=== PATIENT | male | born 1955 | race Hispanic/Latino ===

== ENCOUNTER → 2022-01-07 | Day surgery (SDC) | payer MEDICARE, BC ==
[2022-01-02 16:18] LABS: HEMATOCRIT 46.5 % (38.2-49.6); HEMOGLOBIN 15.3 g/dL (14.0-18.0); LYMPHOCYTES # (AUTO) 0.5 (1.0-3.2); MEAN CORPUSCULAR HGB CONC 32.9 g/dL (31-35); MEAN CORPUSCULAR VOLUME 85.2 fL (81-99); MONOCYTES # (AUTO) 0.6 (0.2-0.8); MONOCYTES % 11.3 % (4.4-11.3); NEUTROPHILS # (AUTO) 4.1 (2.1-6.9); NEUTROPHILS % 79.5 % (38.7-80.0); PLATELET COUNT 161 x10e3/uL (140-360); RED BLOOD COUNT 5.46 x10e6/uL (4.3-5.7); RED CELL DISTRIBUTION WIDTH 12.5 % (11.7-14.4)
[~2022-01-07] MED LIST: ACIDOPHILUS1 EAC1 PO; ASTAXANTHIN4 MG; B-121000 MC2; BIOTIN2500 MCG PO; FENTANYL CITRATE/PF 100MCG/2 ML INJ ONE; FISH OIL 1,4001 EACH; HYOSCYAMINE SULFATE 0.5 MG/ML INJ ONE; METOCLOPRAMIDE HCL 10 MG/2ML VIAL ONE; MIDAZOLAM HCL 2 MG/2 ML VIAL ONE; ONE DAILY FOR1 EAC1; PROPOFOL IV EMULSION 10 MG/ML 20 ML VIAL ONE; PROPOFOL IV EMULSION 10 MG/ML 50 ML VIAL IV ONE; TRIPLE HELIX CO10 GM; UBIQUINOL100 MG; [UNRECOGNIZED DRUG - OTHER]
[2022-01-07 10:35] VITALS: BP 122/82
== END | disposition home or self-care (01) ==
LOC: OR 07:14
PROVIDERS: ATTEND Internal Medicine Gastroenterology
DX: K29.50 Unspecified chronic gastritis without bleeding (principal); D12.4 Benign neoplasm of descending colon; K62.1 Rectal polyp; I85.00 Esophageal varices without bleeding; K20.90 Esophagitis, unspecified without bleeding; K21.9 Gastro-esophageal reflux disease without esophagitis; R05.3 Chronic cough; K57.30 Diverticulosis of large intestine without perforation or abscess without bleeding; K64.8 Other hemorrhoids; J30.2 Other seasonal allergic rhinitis; Z01.810 Encounter for preprocedural cardiovascular examination; Z01.812 Encounter for preprocedural laboratory examination
CPT/HCPCS: 36415; 43239; 45380; 45385; 85025; 88305; 88342; 93005; C9113; J1980; J2704 ×2; J2765; 45378; 88312; J2250; J3010